=== PATIENT | female | born 1985 | race Caucasian/White ===

== ENCOUNTER 2020-10-14 10:24 | Inpatient (IN) ==
[2020-10-14] MEDS ORDERED: OXYTOCIN 30 UNITS/500 ML BAG IV PRN ×2 (10:43→14:13)
[2020-10-14] MEDS ORDERED: LACTATED RINGER'S 1,000 ML IV PRN (10:43)
--- NOTE | 2020-10-14 10:52 | History & Physical Report ---
Date of Service October 14, 2020 Assessment & Plan (1) Normal labor: Plan: IUP at 39 weeks in active labor patient plans unmedicated see orders anticipate vaginal History of Present Illness Chief Complaint: Patient is a 34 yo white female EDC 10/16 20 who presents at 39+ weeks with irregular contractions since 0100. They got much stronger at 0600 with bloody show. They are now 5-6- minutes apart. complicated by GDM on insulin. growth scans have been 30th%tile. and sugar control has been good. GBS (-) Primary Care Provider: NO PCP Allergies Allergy/AdvReac Type Severity Reaction Status Date / Time No Known Allergies Allergy Verified 10/11/20 10:17 Home Medications Medication Instructions Recorded Confirmed Type prenat.vits,mihaela,wtw-hhth-kuysp 1 tab PO DAILY 03/01/20 10/11/20 History acetone (urine) test (Ketone Urine #50 ea 06/01/20 10/11/20 Rx Test) OneTouch Delica Lancets 30 gauge #200 ea NS 06/12/20 10/11/20 Rx (lancets) OneTouch Verio Reflect Meter #1 ea NS 06/12/20 10/11/20 Rx (blood-glucose meter) OneTouch Verio test strips (blood #200 ea NS 06/12/20 10/11/20 Rx sugar diagnostic) insulin NPH isoph U-100 human 100 3 unit SUBCUT QPM #15 ml 06/26/20 10/11/20 Rx unit/mL (3 mL) subcutaneous pen (Novolin N Flexpen) pen needle, diabetic 32 gauge x #50 ea 09/06/20 10/11/20 Rx 5/32" (BD Ultra-Fine Monica Pen Needle) Patient History Medical History Oral herpes Family History Grandfather (Maternal) Colorectal cancer Mother Colonic polyp Denies family history of Ovarian cancer Breast cancer Uterine cancer Social History Smoking Status: Former smoker marital status: marital status details: Amitiffany (35) [phone] Current Living Situation: Spouse Current Living Situation Comment: lives with spouse and daughter, current occupational status: unemployed Physical Exam Constitutional: WD/WN, vitals as above Psychiatric: A+Ox3, euthymic affect Genitourinary: OB Exam Abdomen: + vertex, + estimated weight (6-7 pounds ) and + regular contractions (every 5-6 minutes) OB Exam Monitor Tracing: + external FHT monitor used, + external uterine monitor used, + category I and + normal FHT variability Results & Data ([facility]) Vital Signs (Past 12 Hours) Vital Signs Pulse BP 10/14/20 10:36 113 H 117/73 Code Status & VTE Plan VTE Prophylaxis Plan VTE Prophylaxis will be ordered: No Coding Level of Care Code None Diagnoses Normal labor O80; Z37.9
[2020-10-14 11:07] LABS: Hematocrit (blood only) 38.8 % (37-47); Hemoglobin 12.8 g/dL (12.0-16.0); Mean Corpuscular Hemoglobin 26.9 pg (25-34); Mean Corpuscular Volume 81.7 fL (80-100); Platelet Count 170 K/uL (130-400); RDW Coefficient of Variation 15.3 % (11.5-14.5); RDW Standard Deviation 45.3 fL (36.4-46.3); Red Blood Count 4.75 M/uL (4.2-5.4); White Blood Count 10.37 K/uL (4.8-10.8)
[2020-10-14] MEDS ORDERED: LIDOCAINE 1% LOCAL 20 ML VIAL ONE (14:01)
[2020-10-14] MEDS ORDERED: oxyCODONE/ACETAMINOPHEN 5mg/325mg TAB PO PRN (14:13)
[2020-10-14] MEDS ORDERED: bisacodyL 10 MG SUPP PR PRN (14:13)
[2020-10-14] MEDS ORDERED: DIPHTHERIA/TETANUS/PERTUSSIS 0.5 ML SYR/VIAL IM ONE (14:13)
[2020-10-14] MEDS ORDERED: SUPERCREAM 0.870% 15 GM JAR EXT PRN (14:13)
[2020-10-14] MEDS ORDERED: ACETAMINOPHEN 325 MG TAB PO PRN (14:13)
[2020-10-14] MEDS ORDERED: IBUPROFEN 600 MG TAB PO PRN (14:13)
[2020-10-14] MEDS ORDERED: HYDROCORTISONE ACETATE 25 MG SUPP PR PRN (14:13)
[2020-10-14] MEDS ORDERED: BENZOCAINE 20% AER SPR 82.5 GM CAN EXT PRN (14:13)
--- NOTE | 2020-10-14 14:21 | Delivery Summary ---
Vaginal Delivery Summary Date of Service October 14, 2020 Vaginal Delivery Summary Patient is a 34-year-old 2 para 1-0-0-1 white female EDC of 10/16/2020 who presented with regular contractions. At presentation she was 6 cm dilated and she progressed to 9 cm dilation with bulging membranes. Membranes were ruptured for clear fluid. After complete dilation occurred she pushed effectively over intact perineum for delivery of a viable male infant. After the head was delivered a loose nuchal cord was reduced. The rest of the infant delivered easily and was placed on the mother's abdomen for further attention and drying. The infant was vigorous and moving all 4 limbs. The placenta was expressed intact with a three-vessel cord. The cord was clamped and cut after 1 minute of life. A superficial perineal laceration was not bleeding and therefore not repaired. Estimated blood loss is 250 cc. bleeding was controlled with dilute Pitocin. This was an unmedicated . Mother and infant were doing well after delivery.
[2020-10-14] MEDS: DOCUSATE SODIUM 100 MG CAP PO SCH (20:47)
--- NOTE | 2020-10-15 06:42 | Obstetrical Progress Note ---
Date of Service <Hemalatha Mann MD - Last Filed: 10/15/20 07:38> October 15, 2020 Assessment & Plan <Hemalatha Mann MD - Last Filed: 10/15/20 07:38> (1) Encounter for care and examination after delivery: stable, rooutine care -GBS-, Rh+, RI -encourage ambulation -regular diet - -labs pending -d/c discussed with pt, wants to be d/c today (can accommodate, pending lab results) (2) Normal labor: (3) Insulin controlled gestational diabetes mellitus (GDM) during : (4) Supervision of normal intrauterine in multigravida: <Kiersten Mahajan MD, FACOG - Last Filed: 10/15/20 07:54> (1) Encounter for care and examination after delivery: (2) Normal labor: (3) Insulin controlled gestational diabetes mellitus (GDM) during : (4) Supervision of normal intrauterine in multigravida: Subjective <Hemalatha Mann MD - Last Filed: 10/15/20 07:38> 34 y/o female who is now PPD #1 following spontaneous vaginal delivery at 39.6 weeks. Reports feeling well overall this morning. + abdominal cramping & 5/10 pain well managed on analgesics. Voiding +. Tolerating meals well and able to ambulate some. Denies passing gas or bowel movements. Some persistent lochia with some improvement this morning. . Review of Systems +chills overnight but not at the moment, denies fever, sweats Denies shortness of breath, difficulty breathing, chest pain, palpitations, chest pressure. Denies breast pain. Denies dysuria. Denies headache or changes in vision Review of Systems All systems reviewed & are unremarkable except as noted in HPI & below Physical Exam <Hemalatha Mann MD - Last Filed: 10/15/20 07:38> General: Alert, oriented. No acute distress. Cardiac: Regular rate and rhythm, no murmurs/rubs/gallops. Respiratory: Clear to auscultation bilaterally a/p, no wheezes/rales/rhonchi. No increased work of breathing. Symmetrical chest rise. No respiratory distress. Abdomen: Soft, nontender, nondistended. Bowel sounds present. Uterus: Uterine fundus firm, palpable 5 cm below umbilicus. Lower Extremities: No lower extremity edema or swelling. No deep calf pain. Valdo's negative bilaterally.. Results & Data ([facility]) <Hemalatha Mann MD - Last Filed: 10/15/20 07:38> Vital Signs (Past 12 Hours) Vital Signs Temp Pulse Resp BP Pulse Ox 10/15/20 04:30 36.8 C 88 16 102/65 98 10/15/20 00:35 36.8 C 91 H 17 109/70 98 10/14/20 19:01 36.9 C 91 H 16 107/70 98 <Kiersten Mahajan MD, FACOG - Last Filed: 10/15/20 07:54> Co-Signing Physician Notes Resident Physician Supervision Note: I interviewed and examined the patient. Discussed with Dr. Mann and agree with findings and plan as documented in the note. Any exceptions or clarifications are listed here: [None] Documented By: Kiersten Mahajan MD, FACOG Resident Activity Tracking <Hemalatha Mann MD - Last Filed: 10/15/20 07:38> Resident Involvement: Resident Care Provided Care Provided: OB Delivery
[2020-10-15 06:50] LABS: Hematocrit (blood only) 36.4 % (37-47); Mean Platelet Volume 12.5 fL (7.4-10.4); Platelet Count 162 K/uL (130-400); RDW Coefficient of Variation 15.5 % (11.5-14.5); RDW Standard Deviation 46.2 fL (36.4-46.3); Red Blood Count 4.44 M/uL (4.2-5.4); White Blood Count 11.53 K/uL (4.8-10.8)
[2020-10-15] MEDS ORDERED: PRENATAL VITAMIN 1 TAB PO SCH (08:00)
[2020-10-15] MEDS: DOCUSATE SODIUM 100 MG CAP PO SCH (08:11)
[2020-10-15] MEDS ORDERED: bisacodyL 5 MG TABEC PO SCH (20:00)
== END 2020-10-15 15:35 | disposition home or self-care (01) | DRG 807 ==
LOC: OPB 10:24 → 4S1 10:25 → 4S2 17:22